=== PATIENT | male | born 1950 | race Caucasian/White ===

== ENCOUNTER 2019-05-25 07:47 | Day surgery (SDC) | payer OTHER ==
[~2019-05-25 07:47] MED LIST: AMLO10 PO; Aspir 8181 MG PO; CHLO25B PO; LEVSOD50 PO; Zantac150 MG PO
== END 2019-05-25 09:05 | disposition home or self-care (01) ==
LOC: CT 07:47 → ORD 07:47 → CT 09:00 → ORD 09:05
DX: I25.10 Atherosclerotic heart disease of native coronary artery without angina pectoris (principal); I10 Essential (primary) hypertension; E03.9 Hypothyroidism, unspecified; Z87.891 Personal history of nicotine dependence; Z91.018 Allergy to other foods; Z79.899 Other long term (current) drug therapy; Z79.82 Long term (current) use of aspirin
CPT/HCPCS: 75574; Q9967

== ENCOUNTER 2024-07-13 09:16 | Day surgery (SDC) | payer OTHER ==
[~2024-07-13] VITALS: Ht 180.3 cm; Wt 101.9 kg
[~2024-07-13 09:16] MED LIST changes: +Lactated Ringer's 1,000 ML IV ONE; +propofoL 50 ML IV ONE
[2024-07-13] MEDS ORDERED: ELIQUIS5 M2 (10:08)
[2024-07-13] MEDS ORDERED: Bentyl10 MG (10:08)
[2024-07-13] MEDS ORDERED: FAMO20 (10:09)
[2024-07-13] MEDS ORDERED: LORA.5 (10:09)
[2024-07-13] MEDS ORDERED: MAGCIT300 (10:09)
[2024-07-13] MEDS ORDERED: Crestor40 MG (10:10)
[2024-07-13] MEDS ORDERED: NITR.4SL (10:10)
[2024-07-13] MEDS ORDERED: METO25ER (10:10)
[2024-07-13] MEDS ORDERED: PANT20 (10:10)
[2024-07-13] MEDS ORDERED: Lactated Ringer's 1,000 ML IV ONE (11:00)
[2024-07-13] MEDS ORDERED: Glycopyrrolate 0.2 MG/ML 1MLVIAL ONE (11:01)
[2024-07-13] MEDS ORDERED: Lidocaine HCl 4% 5 ML SDA ONE (11:02)
[2024-07-13 12:53] VITALS: BP 108/77
== END 2024-07-13 12:57 | disposition home or self-care (01) ==
LOC: ORSCSDS 09:16
PROVIDERS: Internal Medicine Gastroenterology
PROC: 0DJ08ZZ Inspection of Upper Intestinal Tract, Via Natural or Artificial Opening Endoscopic (ICD-10-PCS; principal; 2024-07-13 10:45)
PROC: 0DBK8ZX Excision of Ascending Colon, Via Natural or Artificial Opening Endoscopic, Diagnostic (ICD-10-PCS; principal; 2024-07-13 10:45)
PROC: 0DBE8ZX Excision of Large Intestine, Via Natural or Artificial Opening Endoscopic, Diagnostic (ICD-10-PCS; principal; 2024-07-13 10:45)
PROC: 0DBM8ZX Excision of Descending Colon, Via Natural or Artificial Opening Endoscopic, Diagnostic (ICD-10-PCS; principal; 2024-07-13 10:45)
DX: R19.7 Diarrhea, unspecified (principal); K21.9 Gastro-esophageal reflux disease without esophagitis; Z86.0100 Personal history of colon polyps, unspecified; D12.2 Benign neoplasm of ascending colon; K63.5 Polyp of colon; K44.9 Diaphragmatic hernia without obstruction or gangrene; F43.10 Post-traumatic stress disorder, unspecified; K57.30 Diverticulosis of large intestine without perforation or abscess without bleeding; I25.10 Atherosclerotic heart disease of native coronary artery without angina pectoris; I10 Essential (primary) hypertension; E03.9 Hypothyroidism, unspecified; Z79.899 Other long term (current) drug therapy; I48.91 Unspecified atrial fibrillation; Z79.01 Long term (current) use of anticoagulants; Z87.891 Personal history of nicotine dependence
CPT/HCPCS: 88305; J2003; J2704; J7120